=== PATIENT | male | born 1965 | race Caucasian/White ===

== ENCOUNTER → 2020-05-17 | Outpatient (CLI) | payer OTHER ==
[~2020-05-17] MED LIST: ASA81BEC PO; DULOXETINE HCL60 MG PO; FISH OIL 1,0001 EAC9 PO; LOSARTAN POTASS50 MG PO; NEURONTIN 300M300 M2 PO; TRIAMTERENE-HC1 EAC2 PO; VITAMIN C500 M2 PO; VITAMIN D350 MC3 PO
== END ==
LOC: LAB 10:57
PROVIDERS: ATTEND Student in an Organized Health Care Education/Training Program
DX: Z01.818 Encounter for other preprocedural examination (principal); Z11.59 Encounter for screening for other viral diseases

== ENCOUNTER 2020-05-21 11:03 | Day surgery (SDC) | payer OTHER ==
[2020-05-11 10:22] LABS: HEMATOCRIT 39.5 % (42.0-52.0); HEMOGLOBIN 13.3 gm/dL (14.0-18.0); MCH 31.5 pg (26.0-34.0); MCHC 33.8 g/dL (28.0-37.0); RBC 4.24 mil/uL (4.50-6.00); RDW 12.9 % (10.5-14.5); WBC 7.5 thou/uL (4.0-11.0)
[2020-05-11 10:34] LABS: CALCIUM 9.1 mg/dL (8.5-10.1); POTASSIUM 4.5 mmol/L (3.5-5.1)
[2020-05-11 10:51] LABS: PROTIME 10.5 Seconds (9.3-11.4)
[2020-05-11 10:56] LABS: URINE BILIRUBIN NEGATIVE (Negative); URINE BLOOD NEGATIVE (Negative); URINE CLARITY CLEAR; URINE COLOR YELLOW; URINE GLUCOSE-RANDOM* NEGATIVE (Negative); URINE KETONES NEGATIVE (Negative); URINE LEUKOCYTES-REFLEX NEGATIVE (Negative); URINE NITRITE-REFLEX NEGATIVE (Negative); URINE PROTEIN (DIPSTICK) NEGATIVE (Negative); URINE UROBILINOGEN 0.2 E.U./dl (0.2-1.0)
[~2020-05-21] VITALS: Ht 180.3 cm; Wt 127.0 kg
--- NOTE | ~2020-05-21 | EKG ---
[facility] [place] [address] ELECTROCARDIOGRAM REPORT Name: AVE ISAAC Room #: PRE [facility] M.R.#: [id number] Admission: Attend Phys: Krishna England MD Discharge: Date of : 63 Report #: [id number] THIS REPORT FOR: cc: Jeancarlos Nielsen Trystan J. DO Epiphany, Epiphany MD ~ THIS REPORT FOR: //name// [facility] Test Date: 2020-05-11 Test Time: 09:42:37 Pat Name: AVE ISAAC Department: Room: Gender: Runner Worker: MYA : 1965 Requested By: Krishna England Order Number: [id number] MD: Measurements Intervals Steens Rate: 72 P: 50 CA: 225 QRS: 38 QRSD: 118 T: 38 QT: 395 QTc: 433 Interpretive Statements Sinus rhythm Prolonged CA interval Nonspecific intraventricular conduction delay No previous ECG available for comparison [email or web address] By: 1 Epiphany Epiphany, /EPI
--- NOTE | ~2020-05-21 | O ---
[facility] [place] [address] OPERATIVE REPORT Name: AVE ISAAC Room #: 441-P [facility].#: [id number] Admission: 05/21/20 Attend Phys: Krishna England MD Discharge: Date of : 63 Report #: [id number] THIS REPORT FOR: cc: Jeancarlos Nielsen,Krishna Granado MD ~ CC: Krishna Nielsen DATE OF SERVICE: 05/21/2020 PREOPERATIVE DIAGNOSIS: Right hip osteoarthritis. POSTOPERATIVE DIAGNOSIS: Right hip osteoarthritis. PROCEDURE: Right total hip arthroplasty. SURGEON: Krishna England MD. QUALITY INTERNSHIP: Sandra Suarez PA-C. INDICATIONS FOR QUALITY INTERNSHIP: Throughout the case, extensive retraction and manipulation of the hip including dislocation and reduction was required. This was afforded to me by my orthodontic technician assistant. ANESTHESIA: General. IMPLANTS: Campbell and Nephew size 14, high-offset Synergy pressfit stem, a size 56, R3 acetabular cup with 1 acetabular screw, a size 40+4 Oxinium head. ESTIMATED BLOOD LOSS: 250 mL. COMPLICATIONS: None. SPECIMENS: None. CONDITION UPON LEAVING THE OPERATING ROOM: Stable. INDICATIONS FOR PROCEDURE: The patient is a 54-year-old gentleman with severe right hip osteoarthritis. He had failed conservative measures for this and after discussion with him, he elected for right total hip arthroplasty. DESCRIPTION OF PROCEDURE: Risks, benefits, alternatives, complications were discussed in detail with the patient including, but not limited to risk of anesthesia, risk of damage to nerves, arteries, blood vessels, risk for infection, bleeding, risk for leg length discrepancy, instability, and need for [facility] [address] [place] [address] OPERATIVE REPORT Name: DELVIS ISAACLaura Jo Room #: 441-P [facility]#: [id number] Admission: 05/21/20 Attend Phys: Krishna England MD Discharge: Date of : 63 Report #: [id number] reoperation. Informed consent was obtained from the patient and the right hip was appropriately marked in the preoperative holding area. IV Ancef was given for preoperative antibiotics. He was brought to the operating room and placed in a supine position on operating room table. General anesthesia was induced without complication. He was then placed in the left lateral decubitus position with the right hip uppermost. Right hip and lower extremity were prepped and draped in normal sterile fashion. Timeout was performed properly identifying the patient and procedure as well as the instrumentation and implants. All in the operating room were in agreement. Standard posterior approach to the hip was made with 10 blade through the skin. Dissection was taken down to the fascia with Bovie cautery. Fascia was cleaned off with a Murillo elevator and fresh 10 blade was used to make a fascial incision. This was taken proximally and distally with curved Erazo scissor. Charnley retractor was placed. Trochanteric bursa was taken down with Bovie cautery. Piriformis tendon was identified, tagged, and taken down with Bovie. Short external rotators were also taken down with Bovie cautery. Capsulotomy was made and capsule ends were tagged for later repair. Hip was dislocated and there was extensive osteoarthritic change of the femoral head. Femoral neck cut was made 1 cm proximal to lesser trochanter based on preoperative templating and the femoral head was removed. Deep acetabular retractors were placed. Labrum was removed sharply. Pulvinar was removed with Bovie cautery. Acetabulum was then sequentially reamed up to a size 56, at which point, there was excellent bleeding cancellous bone. A size 55 trial cup was placed, found to have a good fit. Final size 56 R3 acetabular cup was then placed and seated. One acetabular screw was placed for backup fixation and polyethylene liner for a 40 head was placed. Attention was then turned to the femur. This was reamed and broached up to a size 14, at which point, the size 14 broach was stable, was trialed with a high-offset neck and a 40+0 head. Hip was reduced, taken through range of motion, found to be stable, found to be somewhat short on the right compared to left. It was felt we could make up for this with the final implant. Hip was dislocated and broach was removed. Final size 14 high-offset Synergy pressfit stem was placed and seated. This was trialed then with a size 40+4 head. The hip was reduced, taken through range of motion, found to be stable, found to have equal leg lengths. Hip was dislocated and a final size 40+4 Oxinium head was placed. Hip was reduced, taken through range of motion, found to be stable, found to have equal leg lengths. The hip was thoroughly irrigated with normal saline. Periarticular injection consisting of morphine, ropivacaine, epinephrine, Toradol was placed around the hip joint capsule. A gram of vancomycin was placed deep in the joint. The capsule and piriformis were repaired with 0 FiberWire. Fascia was closed with 0 Vicryl, skin was closed with 2-0 Vicryl, skin staple and a SANTY dressing was applied. The [address] [address] OPERATIVE REPORT Name: AVE ISAAC Room #: 441-P [facility].#: [id number] Admission: 05/21/20 Attend Phys: Krishna England MD Discharge: Date of : 63 Report #: [id number] patient tolerated this procedure well and went to recovery room under care of anesthesia postoperatively. By: 1850 1909 Krishna England MD /nt
[2020-05-21 15:00] VITALS: BP 162/84
[2020-05-21 17:30] VITALS: BP 142/72
[2020-05-21 17:44] VITALS: BP 123/72
[2020-05-21 18:03] VITALS: BP 142/72
--- NOTE | 2020-05-21 18:27 | NUR ---
PATIENT ARRIVED TO UNIT AT 1720. PATIENT IS A&OX4, VOICES PAIN 4/10 BUT CHOOSES NOT TO TAKE ANYTHING AT THIS TIME. PATIENT IS ON A REGULAR DIET BUT DID NOT GET DINNER. PATIENT STATES HE NEEDS HIS "SHOTS" FOR HIS KNEES BEFORE HE GETS UP DUE TO NOT HAVING ANY FLUID ON HIS JOINTS; "BONE ON BONE". PATIENTS HX AND EDUCATION COMPLETE. EATING A TURKEY SANDWICH AND VOICES NO OTHER NEEDS. WILL CONTINUE TO MONITOR
[2020-05-21 19:43] VITALS: BP 144/71
--- NOTE | 2020-05-21 20:33 | NUR ---
PATIENT ADMITTED FROM OR WITH RIGHT HIP SURGERY/REPAIR, SANTY DRESSING IN PLACE, KNEE HIGH JOSE HOSE, SCD'S, ICE PACK. LEFT UPPER ARM IV IN PLACE, IV FLUIDS AT 100CC/HR. ADMISSION COMPLETED. REPORT GIVEN TO DOROTHY/INPATIENT PHARMACIST.
[2020-05-22 04:39] VITALS: BP 130/63
[2020-05-22 05:13] LABS: HEMATOCRIT 33.8 % (42.0-52.0); HEMOGLOBIN 11.7 gm/dL (14.0-18.0); MCH 32.3 pg (26.0-34.0); MCHC 34.5 g/dL (28.0-37.0); MCV 93.6 fL (80.0-100.0); RBC 3.61 mil/uL (4.50-6.00); RDW 12.9 % (10.5-14.5); WBC 14.4 thou/uL (4.0-11.0)
--- NOTE | 2020-05-22 09:24 | NUR ---
ASSESSMENT: CM REVIEWED CHART AND SPOKE WITH PATIENT. PT IS HERE DUE TO RIGHT TOTAL HIP REPLACEMENT. PT REPORTS THAT HE LIVES IN A BOTTOM STORY APT AND HIS SON IS CURRENTLY STAYING WITH HIM. PT REPORTS HE HAS ABOUT 3 STEPS TO ENTER THE APT. PT REPORTS THAT HE HAS A WALKER AT HOME WELL A STOOL RISER HE WAS GIVEN AND A SHOWER CHAIR. PT REPORTS THAT HE IS IN THE PROCESS OF GETTING HIS OUTPATIENT PHYSICAL THERAPY ARRANGED AND REPORTS HE DOES NOT NEED ASSISTANCE FROM CM WITH THAT. PHYSICAL THERAPY IS TO WORK WITH PATIENT AND PENDING HOW HE DOES HE MAY POSSIBLY DISCHARGE TODAY. CM WILL CONTINUE TO FOLLOW TO ASSIST NEEDED.
--- NOTE | 2020-05-22 09:26 | NUR ---
Assumed care of pt. at 0700. Pt. is calm and cooperative. Pt. has questions regarding arthritis relief shots for knees and does not wish to participate in PT until he recieves the shots. Pt. does not seem overly eager to discharge. Fall precautions in place.
[2020-05-22 12:18] VITALS: BP 130/63
== END 2020-05-22 14:00 | disposition home or self-care (01) ==
LOC: OR 11:03 → TBA 11:04 → OR 11:42 → 4S 17:20 → OR 05-22 14:00
PROVIDERS: ATTEND Orthopaedic Surgery
DX: M16.11 Unilateral primary osteoarthritis, right hip (principal); F32.9 Major depressive disorder, single episode, unspecified; I10 Essential (primary) hypertension; E78.5 Hyperlipidemia, unspecified; Z98.890 Other specified postprocedural states; Z87.891 Personal history of nicotine dependence; Z79.899 Other long term (current) drug therapy
CPT/HCPCS: 10102; 50010; 50101; 50382; 50414; 51412; 53000; 53078; 53368; 54118; 56524; 56527; 56528; 56530; 57095; 57103; 62110; 62900; 70005

== ENCOUNTER → 2020-08-28 | Outpatient (CLI) | payer OTHER ==
[~2020-08-28] MED LIST changes: +AIRBORNE EFFER1 EACH PO; +DRIZALMA SPRINK60 MG PO; +HYDRALAZINE 2525 M1 PO
== END ==
LOC: LAB 08:05
PROVIDERS: ATTEND Orthopaedic Surgery
DX: U07.1 COVID-19 (principal)

== ENCOUNTER 2020-09-17 10:35 | Day surgery (SDC) | payer OTHER ==
[2020-08-28 10:58] LABS: HEMATOCRIT 40.2 % (42.0-52.0); HEMOGLOBIN 13.5 gm/dL (14.0-18.0); MCHC 33.4 g/dL (28.0-37.0); MCV 89.8 fL (80.0-100.0); RBC 4.48 mil/uL (4.50-6.00); RDW 13.3 % (10.5-14.5); WBC 8.8 thou/uL (4.0-11.0)
[2020-08-28 11:00] LABS: URINE BILIRUBIN NEGATIVE (Negative); URINE BLOOD NEGATIVE (Negative); URINE CLARITY CLEAR; URINE COLOR YELLOW; URINE GLUCOSE-RANDOM* NEGATIVE (Negative); URINE KETONES NEGATIVE (Negative); URINE LEUKOCYTES-REFLEX NEGATIVE (Negative); URINE NITRITE-REFLEX NEGATIVE (Negative); URINE PROTEIN (DIPSTICK) NEGATIVE (Negative); URINE UROBILINOGEN 0.2 E.U./dl (0.2-1.0)
[2020-08-28 11:12] LABS: ALBUMIN 4.2 g/dL (3.4-5.0); CALCIUM 9.5 mg/dL (8.5-10.1); CREATININE 0.9 mg/dL (0.7-1.3); POTASSIUM 3.9 mmol/L (3.5-5.1)
[2020-08-28 11:19] LABS: PROTIME 10.5 Seconds (9.3-11.4)
--- NOTE | 2020-08-29 08:46 | NUR ---
COVID POSITIVE TEST ON 08/28/20. SPOKE WITH DR EDWARDS AT 0800, SHE HAD CALLED AND INFORMED PATIENT THIS AM. I CALLED DR JENKINS'S OFFICE AND SPOKE WITH ALPHONSO AND FAXED RESULT. THEY WITH RESCHEDULE SURGERY ON OR AFTER 09/07/[address] EDWARDS' RECOMMENDATIONS.
[~2020-09-17] VITALS: Ht 180.3 cm; Wt 123.8 kg
--- NOTE | ~2020-09-17 | O ---
[facility] [place] [address] OPERATIVE REPORT Name: AVE ISAAC Room #: 150-9 [facility]..#: [id number] Admission: 09/17/20 Attend Phys: Krishna England MD Discharge: Date of : 63 Report #: [id number] THIS REPORT FOR: cc: Jeancarlos Nielsen Trystan J. DO Abraham, Scott M. MD ~ DATE OF SERVICE: 09/17/2020 PREOPERATIVE DIAGNOSIS: Bilateral knee osteoarthritis. POSTOPERATIVE DIAGNOSIS: Bilateral knee osteoarthritis. PROCEDURES: 1. Left total knee arthroplasty using Navio robotic senior underwriting assistant. 2. Intra-articular cortisone injection, right knee. SURGEON: Krishna England MD. ASSURANCE MANAGER: Sandra Suarez PA-C. INDICATIONS FOR ASSURANCE MANAGER: Throughout the case, extensive retraction and manipulation of the knee was required. This was afforded to me by my senior underwriting assistant. ANESTHESIA: LMA with an adductor canal block. IMPLANTS: Campbell and Nephew size 6 Journey II BCS Oxinium femur, size 5 tibia, size 11 polyethylene and size 35 patella. TOURNIQUET TIME: 58 minutes. ESTIMATED BLOOD LOSS: 25 mL. COMPLICATIONS: None. SPECIMENS: None. CONDITION UPON LEAVING THE OPERATING ROOM: Stable. INDICATIONS FOR PROCEDURE: The patient is a 55-year-old gentleman with bilateral knee osteoarthritis. He had failed conservative measures for this and after discussion with him, he elected for left total knee arthroplasty. He also requested a right knee cortisone injection while under anesthesia. DESCRIPTION OF PROCEDURE: Risks, benefits, alternatives, complications were discussed in detail with the patient including but not limited to risk of [facility] [address] [place] [address] OPERATIVE REPORT Name: DELVIS ISAACLaura Jo Room #: 150-9 [facility] M.R.#: [id number] Admission: 09/17/20 Attend Phys: Krishna England MD Discharge: Date of : 63 Report #: [id number] anesthesia, risk of damage to nerves, arteries, blood vessels, risk for infection, bleeding, risk for continued knee pain, need for reoperation. Informed consent was obtained from the patient. Left knee was appropriately marked in the preoperative holding area. IV Ancef was given for preoperative antibiotics. He was brought to the operating room and placed in supine position on operating room table. LMA anesthesia was induced without complication. Tourniquet was placed on the left thigh. Left lower extremity was prepped and draped in normal sterile fashion. Timeout was performed properly identifying the patient and procedure as well as the instrumentation and implants. All in the operating room were in agreement. Left lower extremity was exsanguinated, tourniquet was inflated. Tourniquet time was 58 minutes. Standard midline approach to the knee was made with 10 blade through the skin. Dissection was taken down sharply to the fascia. Deep flaps were developed medially and laterally. Fresh 10 blade was used to make a medial parapatellar arthrotomy and the knee was inspected. There was severe tricompartmental osteoarthritis of the knee. ACL and PCL were removed sharply. Reference pins were placed in the femur and the tibia and the knee was then digitally mapped using the Repeatit robotic system. Intraoperative plan was made and we sized the size 6 femur with a size 5 tibia and a 10 spacer. After acceptance of the intraoperative plan, distal femoral cut was made with a Navio bur. Distal femoral cutting block was pinned in place and chamfer cuts were made. Attention was turned to the tibia. Remainder of the menisci removed with Bovie cautery. Tibial resection guide was pinned in place using the Navio for placement and tibial resection was made. Flexion and extension gaps were then checked and found to be tight medially and medial osteophyte was removed from the tibia and continued to be somewhat tight medially and a limited medial release was performed using the pie crust technique. This balanced the knee well. Tibia was sized, found to be a size 5. A size 5 tibial trial was placed, pinned and punched. A size 6 femoral trial was placed and box cut was made. This was then trialed with a size 10 and then a size 11 polyethylene and size 11 demonstrated 1-2 mm of laxity medially and laterally throughout range of motion of the knee. After this, 9 mm was resected from the posterior surface of the patella and a size 35 patellar trial button was placed. Knee was taken through range of motion, found to be stable, found to have good patellar tracking. Trial components were removed. Bony ends were thoroughly irrigated with normal saline. Final size 5 tibia, size 6 Journey II BCS Oxinium femur and a size 35 patella were cemented in place using standard cementation techniques. While the cement cured, a periarticular injection consisting of morphine, ropivacaine, epinephrine and Toradol was placed around the knee joint capsule. After the cement cured, the tourniquet was deflated. Hemostasis was obtained with Bovie cautery. Final size 11 polyethylene was placed. A gram of vancomycin was placed deep in the joint. Fascia was closed with 0 Vicryl, skin was closed with 2-0 Vicryl, skin staple and a SANTY dressing was applied. The right knee was then prepped and draped and 80 mg of Depo-Medrol were injected from a superolateral portal and a Band-Aid was [address] [place] [address] OPERATIVE REPORT Name: AVE ISAAC Room #: 150-9 [facility] M.R.#: [id number] Admission: 09/17/20 Attend Phys: Krishna England MD Discharge: Date of : 63 Report #: [id number] applied. The patient tolerated these procedures well and went to recovery room under care of anesthesia postoperatively. By: 1615 1639 Krishna England MD /nt
[2020-09-17 12:10] VITALS: BP 178/96
--- NOTE | 2020-09-17 19:14 | NUR ---
Admitted pt. to floor at 1700. Pt. calm and cooperative. No complaints of pain at this time. Fall precautions in place.
[2020-09-17 23:55] VITALS: BP 140/85
[2020-09-18 06:08] LABS: HEMATOCRIT 34.3 % (42.0-52.0); HEMOGLOBIN 11.4 gm/dL (14.0-18.0); MCH 29.9 pg (26.0-34.0); MCHC 33.1 g/dL (28.0-37.0); MCV 90.2 fL (80.0-100.0); RBC 3.81 mil/uL (4.50-6.00); RDW 13.8 % (10.5-14.5); WBC 16.8 thou/uL (4.0-11.0)
--- NOTE | 2020-09-18 11:32 | NUR ---
ASSESSMENT: CM REVIEWED CHART AND SPOKE WITH PATIENT AT THE BEDSIDE. PT IS ALERT AND ORIENTED X4. PT IS S/P TOTAL KNEE REPLACEMENT. PT REPORTS THAT HE LIVES IN A BOTTOM FLOOR APT AND HAS ABOUT 3 STEPS WITH HANDRAILS TO ENTER. PT REPORTS HE HAS A WALKER AT HOME BUT REPORTS THE BOTTOM PART OF A LEG THE METAL IS SCRATCHING THE FLOOR. CM SPOKE WITH LIASON AT [facility] WHO ENCOURAGED PT TO BUT A TENNIS BALL ON IT AND PT IS AGREEABLE. PT REPORTS HE ALSO HAS A STOOL RISER AT HOME. PT STATES SHE HAS OUTPATIENT THERAPY ARRANGED AT [facility] IN [place], [place]. PT REPORTS HE SHOULD HAVE NO NEEDS FROM CM. PT WILL POSSIBLY DISCHARGE HOME TODAY IF CLEARED BY PHYSICAL THERAPY.
--- NOTE | 2020-09-18 13:20 | NUR ---
PT ASSESSED AT START OF SHIFT. PT DOING WELL W/ THERAPY AND HAS BEEN RELEASED TO GO HOME. PAIN RELEIVED W/MEDS. DISCHARGED AT THIS TIME W/ ALL BELONGINGS.
[2020-09-18 13:32] VITALS: BP 140/85
== END 2020-09-18 15:24 | disposition home or self-care (01) ==
LOC: OR 10:35 → TBA 10:40 → 4S 17:00 → OR 17:15
PROVIDERS: ATTEND Orthopaedic Surgery
DX: M17.0 Bilateral primary osteoarthritis of knee (principal); M25.562 Pain in left knee; I10 Essential (primary) hypertension; F32.9 Major depressive disorder, single episode, unspecified; F17.220 Nicotine dependence, chewing tobacco, uncomplicated; Z98.890 Other specified postprocedural states; Z79.899 Other long term (current) drug therapy; Z96.651 Presence of right artificial knee joint; Z79.82 Long term (current) use of aspirin; Z88.0 Allergy status to penicillin
CPT/HCPCS: 50010; 50101; 50415; 50954; 51130; 51225; 51320; 51412; 52001; 52282; 53000; 53078; 56527; 56528; 57095; 57103; 57110; 57127; 57180; 62110; 62900; 70005